=== PATIENT | female | born 1975 | race Hispanic/Latino ===

== ENCOUNTER 2023-09-26 04:51 | Observation (INO) | payer BC ==
[2023-09-26] MEDS ORDERED: ONDANSETRON 4 MG/2 ML VIAL ONE ×2 (05:20→13:33)
[2023-09-26] MEDS ORDERED: FAMOTIDINE 20 MG/2 ML VIAL IV ONE (05:21)
[2023-09-26] MEDS ORDERED: NA CHLORIDE 0.9% 1,000 ML ONE (05:21)
[2023-09-26] MEDS ORDERED: MORPHINE 4 MG/ML SYR ONE (05:21)
[2023-09-26] MEDS ORDERED: MORPHINE 2 MG/ML SYR ONE (05:21)
[2023-09-26 05:48] LABS: Absolute Monocytes 0.6 K/uL (0.1-1.3); Absolute Neutrophil 5.7 K/uL (1.8-8.0); Basophils % 0.4 % (0-1.3); Eosinophils % 0.3 % (0-4.4); Hematocrit 32.3 % (36.0-45.0); Hemoglobin 10.8 g/dL (12.0-15.0); Lymphocytes % 13.8 % (15.3-44.8); MCH 28.3 pg (27.0-35.0); MCHC 33.4 g/dL (32.0-36.0); MCV 84.9 fL (80-100); MPV 8.6 fL (7.6-11.3); Monocytes % 8.6 % (3.3-12.3); Neutrophils % 76.9 % (41.7-73.7); Nucleated Red Blood Cells % 0.1 % (0-0); Platelets 252 thou/uL (152-406); RBC Red Blood Cell Count 3.81 M/uL (3.86-4.86); Red Cell Distribution Width 17.9 % (12.1-15.2)
[2023-09-26 06:04] LABS: Albumin 3.5 g/dL (3.4-5.0); Albumin/Globulin Ratio 0.9 (1.1-1.8); Anion Gap 9.5 mEq/L (5.0-15.0); Bilirubin Total 2.4 mg/dL (0.2-1.0); C-Reactive Protein 5.79 mg/L (<3.00); Potassium 3.5 mEq/L (3.5-5.1); Protein, Total 7.5 g/dL (6.4-8.2)
[2023-09-26 06:06] LABS: Protime INR 0.98
[2023-09-26] MEDS ORDERED: METOCLOPRAMIDE 10 MG/2mL INJ ONE (06:38)
[2023-09-26] MEDS ORDERED: NA CHLORIDE 0.9% 50 ML ONE (06:38)
[2023-09-26] MEDS ORDERED: PROMETHAZINE INJ 25 MG/ML AMP ONE (06:38)
[2023-09-26 07:00] LABS: Specific Gravity 1.026 (1.005-1.030); Urine Clarity Extremely Turbid (Clear); Urine Color Yellow (Yellow); Urine Glucose TRACE (Negative)
[2023-09-26 07:01] LABS: Sqamous Epithelial <5 /HPF (None Seen); Urine Bacteria None Seen /HPF (<20); Urine Bilirubin 1+ (Negative); Urine Blood 2+ (Negative); Urine Culture Reflex Order NOT NEEDED; Urine Ketones 2+ (Negative); Urine Microscopic Reflex YN ORDER UMIC; Urine Mucus 4+ /HPF (None Seen); Urine Nitrite NEGATIVE (Negative); Urine Protein 1+ (Negative); Urine RBC <5 /HPF (None Seen); Urine Urobilinogen 1+ (Normal); Urine WBC <5 /HPF (<5); Urine pH 5.5 (5.0-7.0)
--- NOTE | 2023-09-26 07:33 | RAD REPORT ---
EXAM DESCRIPTION: US - Abdomen Exam Limited - 09/26/2023 6:21 am CLINICAL HISTORY: RUQ pain ;Abd pain COMPARISON: No comparisons FINDINGS: The gallbladder demonstrates extensive cholelithiasis. No pericholecystic fluid or gallbla dder wall thickening. The common bile duct is mildly prominent measuring 7 mm. The liver demonstrates no findings of intrahepatic biliary dilatation. IMPRESSION: Extensive cholelithiasis. Mildly prominent common duct measuring 7 mm.
--- NOTE | 2023-09-26 07:36 | RAD REPORT ---
EXAM DESCRIPTION: CTAbdomen Pelvis W Contrast - 09/26/2023 7:11 am CLINICAL HISTORY: Abdominal pain. ABD PAIN COMPARISON: No comparisons TECHNIQUE: Biphasic CT imaging of the abdomen and pelvis was performed with 100 ml non-ionic IV cont rast. All CT scans are performed using dose optimization technique as appropriate and may include automated exposure control or mA/KV adjustment according to patient size. FINDINGS: The lung bases are clear. The liver demonstrates mild intrahepatic biliary tree dilatation. Extensive cholelithiasis is present in the gallbladder. The spleen, pancreas, adrenal glands and kidneys show no worrisome process. Comm on bile duct appears dilated up to 8 mm with internal possible soft tissue material distally. No bowel obstruction, free air, free fluid or abscess. The appendix is normal. No evidence of signi ficant lymphadenopathy. There is a large mass in the pelvis measuring up to 10 cm which appears to di splace the uterus suggesting a large uterine fibroid. No suspicious bony findings. IMPRESSION: 10 cm mass in the pelvis anteriorly probably represents a large uterine fibroid. Extensive cholelithiasis. Dilated common duct with mild soft tissue density distally may indicate cho ledocholithiasis. MRCP/ ERCP may be of value for followup assessment.
[2023-09-26] MEDS ORDERED: NA CHLORIDE 0.9% 100 ML ONE (07:45)
[2023-09-26] MEDS ORDERED: PIPERACIL/TAZO 4.5 GM VIAL IV ONE (07:45)
--- NOTE | 2023-09-26 07:48 | ER ---
Nurse's Notes [facility] Name: Stephanie Noguera Age: 48 yrs Sex: Female : 1975 Arrival Date: 09/26/2023 Time: 04:51 Bed 7 Private MD: Diagnosis: Cholecystitis, unspecified;Dialated common bile duct;Abdominal pain, unspecified Presentation: 09/25 05:11 Chief complaint: Patient states: right upper quadrant pain radiating to back. Pain is tm6 sharp, 10/10. Pain began Friday and has gotten worse. Had one episode of nausea and vomiting. Coronavirus screen: Vaccine status: Patient reports receiving the 2nd dose of the covid vaccine. Ebola Screen: Patient negative for fever greater than or equal to 101.5 degrees Fahrenheit, and additional compatible Ebola Virus Disease symptoms Patient denies exposure to infectious person. Patient denies travel to an Ebola-affected area in the 21 days before illness onset. No symptoms or risks identified at this time. Initial Sepsis Screen: Does the patient meet any 2 criteria? No. Patient's initial sepsis screen is negative. Does the patient have a suspected source of infection? No. Patient's initial sepsis screen is negative. Risk Assessment: Do you want to hurt yourself or someone else? Patient reports no desire to harm self or others. Onset of symptoms was September 23, 2023. 05:11 Method Of Arrival: Ambulatory tm6 05:11 Acuity: SHA 3 tm6 Triage Assessment: 05:13 General: Appears distressed, uncomfortable, Behavior is calm, cooperative. Pain: tm6 Complains of pain in right upper quadrant Pain radiates to back Pain currently is 100 out of 10 on a pain scale. Quality of pain is described as sharp, Pain began 2-3 days ago. EENT: No signs and/or symptoms were reported regarding the EENT system. Neuro: Level of Consciousness is awake, alert, obeys commands, Oriented to person, place, time, situation. Cardiovascular: Patient's skin is warm and dry. Respiratory: No deficits noted. Airway is patent Respiratory effort is even, unlabored, Respiratory pattern is regular, symmetrical. GI: Abdomen is flat, non-distended, Abd is soft Abdomen is tender to palpation in right upper quadrant Reports upper abdominal pain. : No signs and/or symptoms were reported regarding the genitourinary system. Derm: No signs and/or symptoms reported regarding the dermatologic system. Musculoskeletal: No signs and/or symptoms reported regarding the musculoskeletal system. Historical: - Allergies: 05:13 Tylenol; tm6 05:13 Ibuprofen; tm6 - PMHx: 05:13 None; tm6 - PSHx: 05:13 None; tm6 - Immunization history:: Client reports receiving the 2nd dose of the Covid vaccine. - Infectious Disease History:: Denies. - Social history:: Smoking status: Patient denies any tobacco usage or history of. Patient/guardian denies using alcohol, street drugs. - Family history:: not pertinent. Screenin:15 [facility] ED Fall Risk Assessment (Adult) History of falling in the last 3 months, tm6 including since admission No falls in past 3 months (0 pts) Confusion or Disorientation No (0 pts) Intoxicated or Sedated No (0 pts) Impaired Gait No (0 pts) Mobility Assist Device Used No (0 pt) Altered Elimination No (0 pt) Score/Fall Risk Level 0 - 2 = Low Risk Oriented to surroundings, Maintained a safe environment, Educated pt \T\ family on fall prevention, incl call for assistance when getting out of bed. Abuse screen: Denies threats or abuse. Denies injuries from another. Nutritional screening: No deficits noted. Tuberculosis screening: No symptoms or risk factors identified. Assessment: 05:15 Reassessment: see triage assessment. GI: Bowel sounds present X 4 quads. tm6 06:50 Reassessment: pain has decreased, but nausea increased. tm6 07:12 Reassessment: Patient is alert, oriented x 3, equal unlabored respirations, skin aa5 warm/dry/pink. Pt back from CT scan, now resting with eyes closed. . General: Appears comfortable. Pain: Pain currently is 0 out of 10 on a pain scale. 08:52 Reassessment: Patient is alert, oriented x 3, equal unlabored respirations, skin aa5 warm/dry/pink. Patient denies pain at this time. Patient states feeling better. Patient states symptoms have improved. Pt back from MRI. Vital Signs: 05:11 BP 135 / 78; Pulse 70; Resp 19; Temp 98(O); Pulse Ox 100% on R/A; Weight 65.77 kg; tm6 Height 5 ft. 0 in. ; Pain 10/10; 06:50 BP 112 / 76; Pulse 74; Pulse Ox 98% on R/A; Pain 0/10; tm6 09:00 BP 140 / 76; Pulse 88; Resp 14 S; Temp 97.6(TE); Pulse Ox 100% on R/A; Pain 0/10; aa5 05:11 Body Mass Index 28.32 (65.77 kg, 152.4 cm) tm6 05:11 Pain Scale: Adult tm6 06:50 Pain Scale: Adult tm6 09:00 Pain Scale: Adult aa5 [place] Coma Score: 06:26 Eye Response: spontaneous(4). Motor Response: obeys commands(6). Verbal Response: sp4 oriented(5). Total: 15. ED Course: 04:54 Patient arrived in ED. jj6 05:11 Sal Alejandra, RN is Primary Nurse. tm6 05:11 Scottie Bailey MD is Attending Physician. sp4 05:13 Triage completed. tm6 05:13 Arm band placed on right wrist. tm6 05:15 Patient has correct armband on for positive identification. Placed in gown. Bed in low tm6 position. Call light in reach. Side rails up X 1. Provided Education on: use of call coffman. Client placed on continuous cardiac and pulse oximetry monitoring. NIBP monitoring applied. Pulse ox on. NIBP on. Door closed. Noise minimized. 05:36 Inserted saline lock: 20 gauge in right antecubital area, using aseptic technique. tm6 Blood collected. Flushed with 10 mL NS. 05:37 Lipase Sent. tm6 05:37 CMP Sent. tm6 05:37 CBC with Diff Sent. tm6 05:37 PT-INR Sent. tm6 06:23 US Abdomen Limited In Process Unspecified. EDMS 06:49 Urinalysis w/ reflexes Sent. tm6 06:49 Test, Urine Sent. tm6 06:59 Attending Physician role handed off by Scottie Bailey MD ms3 06:59 Gasper Licona DO is Attending Physician. ms3 07:12 CT Abd/Pelvis - IV Contrast Only In Process Unspecified. EDMS 07:46 Anthony Mckeon MD is Hospitalizing Provider. ms3 08:30 Cholangiogram In Process Unspecified. EDMS 09:41 0922 CM met with and her Nelson at the bedside in the ED exam ane room. Patient identified by name and . Demographic sheet confirmed. Patient states her and her live in a one story home and prior to admission, she performs ADLs independently and without physical limitations. No MPOA in place at this time. Mrs. Noguera does not have HH, home oxygen, DME, or other medical services at this time. Her preferred discharge plan is to return home upon discharge. Her Nelson states he will transport home when discharged. CM team will continue to follow and coordinate care. Administered Medications: 05:37 Drug: NS 0.9% IV 1000 ml IV at 1 bolus Per protocol; 1000 mL bolus Route: IV; Rate: 1 tm6 bolus; Site: right antecubital; 06:49 Follow up: Response: No adverse reaction; IV Status: Completed infusion; IV Intake: tm6 1000ml 05:37 Drug: Famotidine IVP 20 mg IVP once; dilute with 10 mL 0.9% NaCl; give over 2 minutes tm6 Route: IVP; Site: right antecubital; 06:49 Follow up: Response: No adverse reaction tm6 05:37 Drug: Ondansetron IVP 4 mg IVP once; over 2 minutes Route: IVP; Site: right antecubital;tm6 06:49 Follow up: Response: No adverse reaction; No change in condition tm6 05:37 Drug: morphine IVP or IV 6 mg IVP once over 4 mins Route: IVP; Infused Over: 4 mins; tm6 Site: right antecubital; 06:49 Follow up: Response: Pain is decreased; Nausea is increased tm6 06:49 Drug: metoCLOPramide IVP 10 mg IVP once; over 1 to 2 minutes Route: IVP; Site: right tm6 antecubital; 07:00 Follow up: Response: No adverse reaction aa5 06:49 Drug: Promethazine IM 25 mg IM once Route: IM; Site: right deltoid; tm6 07:00 Follow up: Response: No adverse reaction aa5 07:53 Drug: Piperacillin-Tazobactam IVPB 4.5 grams IVPB once over 60 mins; (mix in 100 mL NS) aa5 Route: IVPB; Infused Over: 60 mins; Site: right antecubital; 07:58 Follow up: IV Pause: 09/26/2023 07:58; IV Pause Reason: Patient to MRI aa5 08:53 Follow up: IV Resume: 09/26/2023 08:53; IV Resume Reason: Patient returned from MRI aa5 Medication: 05:15 VIS not applicable for this client. tm6 Intake: 06:49 IV: 1000ml; Total: 1000ml. tm6 Outcome: 07:47 Decision to Hospitalize by Provider. ms3 09:38 Patient left the ED. jr12 Signatures: Dispatcher [employer] EDMS Yancy Painting RN RN aa5 Gasper Licona DO DO ms3 Neida Wood jj6 Scottie Bailey MD MD 4 Cici Madison jr12 Sal Alejandra RN RN tm6 Linda Pinto RN RN ane Corrections: (The following items were deleted from the chart) 05:14 05:13 Allergies: No Known Allergies; tm6 tm6 05:42 05:37 C-REACTIVE PROTEIN+C.LAB.BRZ drawn and sent. tm6 EDMS
--- NOTE | 2023-09-26 07:48 | EDPHYS ---
Physician Documentation [facility] Name: Stephanie Noguera Age: 48 yrs Sex: Female : 1975 Arrival Date: 09/26/2023 Time: 04:51 Bed 7 Private MD: ED Physician Gasper Licona HPI: 09/25 05:11 This 48 yrs old Female presents to ER via Unassigned with complaints of sp4 Abdominal Pain, Nausea/Vomiting. 06:26 88-year-old female presents with acute onset right upper quadrant abdominal pain sp4 starting about 4 days ago. Worsening this morning. Associated with vomiting. Historical: - Allergies: 05:13 Tylenol; tm6 05:13 Ibuprofen; tm6 - PMHx: 05:13 None; tm6 - PSHx: 05:13 None; tm6 - Immunization history:: Client reports receiving the 2nd dose of the Covid vaccine. - Infectious Disease History:: Denies. - Social history:: Smoking status: Patient denies any tobacco usage or history of. Patient/guardian denies using alcohol, street drugs. - Family history:: not pertinent. ROS: 06:26 Constitutional: Negative for fever, chills, and weight loss, positive right upper sp4 quadrant pain positive vomiting 06:26 All other systems are negative, Exam: 06:26 Constitutional: This is a well developed, well nourished patient who is awake, alert, sp4 and in no acute distress. Head/Face: Normocephalic, atraumatic. Eyes: Pupils equal round and reactive to light, extra-ocular motions intact. Lids and lashes normal. Conjunctiva and sclera are not injected. Cornea within normal limits. Periorbital areas with no swelling, redness, or edema. ENT: Nares patent. No nasal discharge, no septal abnormalities noted. Tympanic membranes are normal and external auditory canals are clear. Oropharynx with no redness, swelling, or masses, exudates, or evidence of obstruction, uvula midline. Mucous membranes moist. Neck: Trachea midline, no thyromegaly or masses palpated, and no cervical lymphadenopathy. Supple, full range of motion without nuchal rigidity, or vertebral point tenderness. Chest/axilla: Normal chest wall appearance and motion. Nontender with no deformity. No lesions are appreciated. Cardiovascular: Regular rate and rhythm with a normal S1 and S2. No gallops, murmurs, or rubs. Normal PMI, no JVD. No pulse deficits. Respiratory: Lungs have equal breath sounds bilaterally, clear to auscultation and percussion. No rales, rhonchi or wheezes noted. No increased work of breathing, no retractions or nasal flaring. Abdomen/GI: Soft, with normal bowel sounds. No distension or tympany. No guarding or rebound. No evidence of tenderness throughout. Back: No spinal tenderness. No costovertebral tenderness. Skin: Warm, dry with normal turgor. Normal color with no rashes, no lesions, and no evidence of cellulitis. MS/ Extremity: Pulses equal, no cyanosis. Neurovascular intact. Full, normal range of motion. Neuro: Awake and alert, GCS 15, oriented to person, place, time, and situation. Cranial nerves II-XII grossly intact. Motor strength 5/5 in all extremities. Sensory grossly intact. Psych: Awake, alert, with orientation to person, place and time. Behavior, mood, and affect are within normal limits Vital Signs: 05:11 BP 135 / 78; Pulse 70; Resp 19; Temp 98(O); Pulse Ox 100% on R/A; Weight 65.77 kg; tm6 Height 5 ft. 0 in. ; Pain 10/10; 06:50 BP 112 / 76; Pulse 74; Pulse Ox 98% on R/A; Pain 0/10; tm6 09:00 BP 140 / 76; Pulse 88; Resp 14 S; Temp 97.6(TE); Pulse Ox 100% on R/A; Pain 0/10; aa5 05:11 Body Mass Index 28.32 (65.77 kg, 152.4 cm) tm6 05:11 Pain Scale: Adult tm6 06:50 Pain Scale: Adult tm6 09:00 Pain Scale: Adult aa5 [place] Coma Score: 06:26 Eye Response: spontaneous(4). Motor Response: obeys commands(6). Verbal Response: sp4 oriented(5). Total: 15. MDM: 05:17 Patient medically screened. sp4 06:27 Differential diagnosis: Nonspecific abd pain, gastritis, cholecystitis, pancreatitis, sp4 diverticulitis, viral gastroenteritis, gastroenteritis. Data reviewed: vital signs, lab test result(s), radiologic studies, CT scan, ultrasound. Consideration of Admission/Observation Escalation of care including admission/observation considered. Transition of care: After a detail discussion of the patient's case, care is transferred to Gasper Licona DO. 06:59 Transition of care: Care assumed from Scottie Bailey MD. ms3 07:58 Management of patient was discussed with the following: Hospitalist: Dr Mckeon. ms3 Medical Staffing Coordinator: Dr Green. I considered the following discharge prescriptions or medication management in the emergency department Medications were administered in the Emergency Department. See MAR. Independent interpretation of the following test(s) in the Emergency Department CT Scan: My interpretation is CT abdomen and pelvis images reviewed revealed enlarged uterus and cholelithiasis. Counseling: I had a detailed discussion with the patient and/or guardian regarding the historical points, exam findings, and any diagnostic results supporting the discharge/admit diagnosis, lab results, radiology results, the need for further work-up and treatment in the hospital. ED course: Discussed ultrasound and CT findings with Dr. Green and patient to be admitted to the hospitalist team. He would like MRCP ordered. Patient to remain NPO. Zosyn given.. 09/25 05:11 Order name: CBC with Diff; Complete Time: 06:39 sp4 09/25 05:11 Order name: CMP; Complete Time: 06:39 sp4 09/25 05:11 Order name: Lipase; Complete Time: 06:39 sp4 09/25 05:11 Order name: Test, Urine; Complete Time: 07:35 sp4 09/25 05:11 Order name: Urinalysis w/ reflexes; Complete Time: 07:35 sp4 09/25 05:17 Order name: PT-INR; Complete Time: 06:39 sp4 09/25 05:43 Order name: C-Reactive Protein; Complete Time: 06:39 EDMS 09/25 05:16 Order name: CT Abd/Pelvis - IV Contrast Only; Complete Time: 07:38 sp4 09/25 05:17 Order name: US Abdomen Limited; Complete Time: 07:35 sp4 09/25 07:52 Order name: Cholangiogram EDMS 09/25 05:12 Order name: IV Saline Lock; Complete Time: 05:37 sp4 09/25 05:12 Order name: Labs collected and sent; Complete Time: 05:37 sp4 09/25 07:51 Order name: NPO; Complete Time: 07:52 la1 Administered Medications: 05:37 Drug: NS 0.9% IV 1000 ml IV at 1 bolus Per protocol; 1000 mL bolus Route: IV; Rate: 1 tm6 bolus; Site: right antecubital; 06:49 Follow up: Response: No adverse reaction; IV Status: Completed infusion; IV Intake: tm6 1000ml 05:37 Drug: Famotidine IVP 20 mg IVP once; dilute with 10 mL 0.9% NaCl; give over 2 minutes tm6 Route: IVP; Site: right antecubital; 06:49 Follow up: Response: No adverse reaction tm6 05:37 Drug: Ondansetron IVP 4 mg IVP once; over 2 minutes Route: IVP; Site: right antecubital;tm6 06:49 Follow up: Response: No adverse reaction; No change in condition tm6 05:37 Drug: morphine IVP or IV 6 mg IVP once over 4 mins Route: IVP; Infused Over: 4 mins; tm6 Site: right antecubital; 06:49 Follow up: Response: Pain is decreased; Nausea is increased tm6 06:49 Drug: metoCLOPramide IVP 10 mg IVP once; over 1 to 2 minutes Route: IVP; Site: right tm6 antecubital; 07:00 Follow up: Response: No adverse reaction aa5 06:49 Drug: Promethazine IM 25 mg IM once Route: IM; Site: right deltoid; tm6 07:00 Follow up: Response: No adverse reaction aa5 07:53 Drug: Piperacillin-Tazobactam IVPB 4.5 grams IVPB once over 60 mins; (mix in 100 mL NS) aa5 Route: IVPB; Infused Over: 60 mins; Site: right antecubital; 07:58 Follow up: IV Pause: 09/26/2023 07:58; IV Pause Reason: Patient to MRI aa5 08:53 Follow up: IV Resume: 09/26/2023 08:53; IV Resume Reason: Patient returned from MRI aa5 Disposition Summary: 09/26/23 07:47 Hospitalization Ordered Notes: Hospitalization Status: Inpatient Admission ms3 Provider: Anthony Mckeon ms3 Location: Telemetry/[facility]Sur (Inpatient) ms3 Condition: Stable ms3 Problem: new ms3 Symptoms: are unchanged ms3 Bed/Room Type: Standard ms3 Room Assignment: 202(09/26/23 08:54) jr12 Diagnosis - Cholecystitis, unspecified ms3 - Dialated common bile duct ms3 - Abdominal pain, unspecified ms3 Forms: - Medication Reconciliation Form ms3 - SBAR form ms3 - Leadership Thank You Letter ms3 Signatures: Dispatcher [employer] EDPR Yancy Painting, RN RN aa5 Jos Walls, VICE PRESIDENT OF TALENT MANAGEMENT-C VICE PRESIDENT OF TALENT MANAGEMENT-Cla1 Gasper Licona DO DO ms3 Scottie Bailey MD MD sp4 Cici Madison jr12 Sal Alejandra RN RN tm6 Corrections: (The following items were deleted from the chart) 05:14 05:13 Allergies: No Known Allergies; tm6 tm6 05:42 05:17 C-REACTIVE PROTEIN+C.LAB.BRZ ordered. EDPR EDMS 08:54 07:47 ms3 jr12
--- NOTE | 2023-09-26 08:56 | RAD REPORT ---
EXAM DESCRIPTION: MRI - Cholangiogram - 09/26/2023 8:28 am CLINICAL HISTORY: Cholelithiasis, elevated lft, dilated cbd COMPARISON: No comparisons FINDINGS: Three-dimensional MRCP was performed using maximum intensity projection reconstruction on the same work station. Intrahepatic biliary tree is mildly prominent. Common bile duct is mildly dilated with 6 mm rounded s tructure distal common bile duct likely distal common bile duct stone. The pancreatic duct is not pat hologically dilated. Multiple stones are present filling the gallbladder. Limited T2 sequences through the abdomen demonstrates no bulky adenopathy, significant free fluid or abscess. IMPRESSION: Cholelithiasis. Choledocholithiasis is also present with 6 mm stones suspected distal common duct. Intrahepatic bilia ry tree mildly prominent.
[2023-09-26] MEDS ORDERED: ONDANSETRON 4 MG/2 ML VIAL IV PRN (09:45)
[2023-09-26] MEDS: NA CHLORIDE 0.9% 1,000 ML IV SCH (09:55)
[2023-09-26 10:02] VITALS: BMI 28.3
--- NOTE | 2023-09-26 10:19 | P.HP ---
Certification for Inpatient Patient admitted to: Observation With expected LOS: <2 Midnights Patient will require the following post-hospital care: None Practitioner: I am a practitioner with admitting privileges, knowledge of patient current condition, hospital course, and medical plan of care. Services: Services provided to patient in accordance with Admission requirements found in Title 42 Section 412.3 of the Code of Federal Regulations Patient History Date of Service: 09/26/23 Reason for admission: Choledocholithiasis History of Present Illness: Otherwise healthy 48-year-old female presents emergency department for 3 days of abdominal pain, right upper quadrant. She was evaluated in the emergency department her labs were significant for an AST of 104 ALT of 211 T. bili 2.[address] abdomen pelvis with IV contrast was performed which showed 10 cm mass in the pelvis anteriorly probably represents a large uterine fibroid, extensive cholelithiasis. Dilated common bile duct with mild soft tissue density distally may indicate choledocholithiasis. Subsequent MRCP was performed which confirmed choledocholithiasis with a 6 mm stone in the distal bile duct, intrahepatic biliary tree mildly prominent. ED physician discussed case with general surgery who plans for operative management. 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 moist/pink Neck: Supple, 2+ carotid pulse no bruit Respiratory: Clear to auscultation bilaterally, Normal air movement Cardiovascular: Regular rate/rhythm, Normal S1 S2 Gastrointestinal: Normal bowel sounds, Tenderness (Right upper quadrant tendernessmild) Musculoskeletal: No tenderness Integumentary: No rashes Neurological: Normal speech, Normal strength at 5/5 x4 extr, Normal tone - Studies Laboratory Data (last 24 hrs) 09/26/23 09/26/23 09/26/23 05:36 05:36 05:36 WBC 7.50 Hgb 10.8 L Hct 32.3 L Plt Count 252 PT 11.0 INR 0.98 Sodium 135 L Potassium 3.5 BUN 7 Creatinine 0.61 Glucose 136 H Total Bilirubin 2.4 H AST 104 H ALT 211 H Alkaline Phosphatase 233 H Lipase 24 Assessment and Plan - Plan Assessment: Cholelithiasis, choledocholithiasis Elevated aminotransferase levels/T. bili Plan: Cholelithiasis, choledocholithiasis Elevated aminotransferase levels/T. bili MRCP positive for suspected choledocholithiasis General Surgery plans for operative management N.p.o., IVF, as needed pain medications and antiemetics Repeat CBC/CMP in the morning DVT PPX: SCDs Code status: Full Discharge Plan: Home Plan to discharge in: 24 Hours - Advance Directives Does patient have a Living Will: No Does patient have a Durable POA for Healthcare: No - Code Status/Comfort Care Code Status Assessed: Yes (Full code) Critical Care: No Time Spent Managing Pts Care (In Minutes): 55
[2023-09-26] MEDS ORDERED: KETOROLAC 30 MG/ML INJ ONE (13:33)
[2023-09-26] MEDS ORDERED: MIDAZOLAM HCL 2 MG/2 ML INJ ONE (13:33)
[2023-09-26] MEDS ORDERED: LIDOCAINE 1% MPF 5 ML VIAL ONE (13:33)
[2023-09-26] MEDS ORDERED: ROCURONIUM 50 MG/5 ML VIAL IV ONE (13:33)
[2023-09-26] MEDS ORDERED: FENTANYL CITR 100 MCG/2 ML ONE ×2 (13:33→18:01)
[2023-09-26] MEDS ORDERED: propofoL 200 MG/20 ML VIAL IV ONE (13:33)
[2023-09-26] MEDS ORDERED: dexAMETHasone 10 MG/ML VIAL ONE (14:15)
[2023-09-26] MEDS: PIPER TAZO 3.375 GM in NA CHLORIDE 0.9% 100 ML IV ONE (14:50)
[2023-09-26] MEDS: LIDOCAINE HCL/EPINEPHRINE 20 ML MDV ONE (14:51)
[2023-09-26] MEDS: Ringers Lactate 1,000 ML IV ONE (16:19)
[2023-09-26] MEDS ORDERED: NEOSTIGMINE 1 MG/ML -10 ML VIAL ONE (18:21)
[2023-09-26] MEDS ORDERED: GLYCOPYRROLATE 0.2 MG/ML SYR ONE ×3 (18:22)
[2023-09-26] MEDS ORDERED: Ringers Lactate 1,000 ML IV ONE (18:36)
--- NOTE | 2023-09-26 18:51 | P.OP ---
Preoperative diagnosis: Choledocholithiasis with Cholecystitis Postoperative diagnosis: Choledocholithiasis with Cholecystitis Primary procedure: Laparoscopic Cholecystomy ICG Secondary procedure: Intraoperative cholangiography with contrast Other procedure(s): Laparoscopic Common Bile Duct Exploration Anesthesia: GETA + Local Estimated blood loss: <10cc Specimen: Gallbladder, gallstones Findings: multiple stones in common, cystic duct Complications: None Drain(s): JACKY drain (10mm Flat JACKY ) Transferred to: Recovery Room Condition: Good
[2023-09-26] MEDS: ONDANSETRON 4 MG/2 ML VIAL ONE (19:10)
[2023-09-26] MEDS: HYDROMORPHONE HCL 1 MG/ML INJ ONE (19:12)
[2023-09-26 19:24] VITALS: O2SAT 92
[2023-09-26] MEDS: MORPHINE 2 MG/ML SYR IV PRN (21:06)
--- NOTE | 2023-09-26 22:15 | RAD REPORT ---
EXAM DESCRIPTION: RAD - Cholangiogram Oper-Xray Or - 09/26/2023 10:06 pm CLINICAL HISTORY: lap tatiana COMPARISON: None available. FINDINGS: Two Images were sent to PACS, documenting fluoroscopy use during an intraoperative cholang iogram. No radiologist was available for the procedure, nor will any image interpretation he provided . Please refer to the procedural report for additional details. Fluoroscopy time: 0.5 Minutes. IMPRESSION: Documentation of fluoroscopy utilization as above.
--- NOTE | 2023-09-27 04:21 | OP ---
Date of Procedure: 09/26/2023 Surgeon: Cristian Green MD, Preoperative Diagnoses: Choledocholithiasis, cholecystitis. Postoperative Diagnoses: Choledocholithiasis, cholecystitis. Procedures Performed: 1.Laparoscopic cholecystectomy with indocyanine green cholangiography. 2.Intraoperative contrast cholangiography. 3.Laparoscopic common bile duct exploration with multiple stone extractions. Anesthesia: General endotracheal plus local with 1% lidocaine with epinephrine. Estimated Blood Loss: Less than 10 cc. Specimens: Gallbladder and multiple gallstones. Findings: Multiple gallstones in the common duct as well as cystic duct, not all of which were prese nt on preoperative imaging. Drains: A 10 mm flat JACKY drain placed in the subhepatic space. The patient was transferred [facility] room in good condition. Brief History Of Present Illness: The patient is a 48-year-old woman who had mild epigastric tendern ess and pain over the course of some extended period of time, who presented to the ER with abdominal pain. Ultimately, workup showed that she had a gallbladder, which was impacted with stones and evide nce of choledocholithiasis with at least a 6 mm stone at the distal common bile duct. As such, she w as deemed appropriate for operative intervention. I discussed the case with the patient and her husb and and explained that the plan would be laparoscopic cholecystectomy, intraoperative cholangiography with indocyanine green cholangiography as well as contrast cholangiography and laparoscopic common b ile duct exploration with stone extraction. I explained the risks, benefits, and alternatives of the above stated plan including, but not limited to bleeding; infection; damage to surrounding tissues; injury to the liver, pancreas, bile ducts; need for further operative procedures; heart attacks; bloo d clots; strokes; and other unforeseen complication in the perioperative period. Most importantly, p ossible need for ongoing and additional procedures after surgery depending on the findings. The shane ent and her displayed understanding of the above stated plan. All questions answered and the patient agreed to proceed as indicated. Procedure In Detail: After above informed consent was obtained, the patient was brought to the opera ting room, prepped and draped in the usual sterile fashion. After adequate anesthesia achieved, I an esthetized the area of the supraumbilical position down through subcutaneous tissues. 5 mm 0 degree optical trocar was introduced in the abdomen without incident or complication. Insufflation was obta ined to 15 mmHg at this time. There was no injury to vital structures upon entry in the abdomen. 3 additional trocars were placed, 1 in the epigastrium, 1 in the right upper quadrant, 1 in the right m id abdomen. All these were 5 mm trocars placed under direct visualization without incident or compli cation. The umbilical trocar then upsized to 12 mm under direct visualization without incident or co mplication. Patient was positioned in head up right-side up position. Ratcheted graspers attempted to grasp the patient's gallbladder. It was completely full of stones and impossible to be grasped at this point. However, stone was noted to be eroding to the fundus of the gallbladder, and as such, I opted to dissect the omental attachments off the anterior surface of the gallbladder as the gallblad sissy was completely encased in omental attachments and close proximity to the duodenum as well as stom ach. These were taken down using combination of blunt dissection as well as electrocautery with mini mal electrocautery to preserve all structures. At this point, after the gallbladder was visualized a ppropriately, I tried to the decompress the gallbladder with decompression needle, which was complete ly unsuccessful as no bile was evident coming through this area. Indocyanine green cholangiography c onfirmed that fact that the gallbladder was filled with no bile. At this point, there was minimal op acification of the cystic duct proximally, but not distally towards the gallbladder. At this point, I opted to open the fundus of the gallbladder to allow for grasping. I grasped the gallbladder throu gh this portion of the fundus of the gallbladder, placed it towards the patient's right shoulder and dissected down as described above, continuing down taking a somewhat dome down approach to allow for mobilization of the gallbladder with significant adhesions precluding its normal safe positioning. A t this point, I dissected circumferentially, dissected out 2 structures, identified both the cystic d uct and cystic artery. The cystic duct was quite dilated and the stone was evident in this area very close to the proximity at the confluence of the cystic duct gallbladder junction. I ultimately atte mpted to milk this stone back in to the gallbladder, which seemed successful at this point. However, there appeared to be another stone distally from this previously placed stone at this time. I then encircled these structures and noted the significant dilation of the cystic duct at this time with si gnificant scar tissue evident. I then made an incision overlying this cystic duct and entered a chol angiogram catheter, attempted to shoot a cholangiogram, which did opacify distally, but not proximall y as the hepatic ducts were not visualized; however, contrast did show evidence of distal common bile duct stone as well as a stone, which I had to pass the catheter around in the cystic duct to allow f or visualization. At this point, I suspect that the cholangiogram was incomplete due to the balloon being beyond the stone, which sat near the confluence of the cystic duct common duct confluence and i nflating the balloon past the stone causing the obstruction, allowing for non-opacification of the in trahepatic ducts. The distal common bile duct was visualized, however, at this point showing a stone evident, and as such, I opted to perform a laparoscopic common bile duct exploration with the [place] ss technology at this point. I was able to place the introducer sheath and Spyglass camera into the cystic duct. I ultimately encountered a stone here at the cystic duct once again, which was the seco nd stone. I was able to pass the basket around the stone and retrieved it ultimately, placed it on t he back table, and ultimately advanced back into the catheter at this point. I attempted to pass a w ronald, which was unsuccessful and there seemed to be significant stone burden throughout the common dione e duct, which was more proximal than anticipated near the distal common bile duct, which was indicate d on the preoperative imaging. As such, attempts at using small wires and direct visualization were unsuccessful passing a wire into the duodenum, and as such, I opted to do direct vision and I placed the Spyglass scope/choledochoscope into the cystic duct once again and ultimately passed into the com mon bile duct. I encountered multiple stones through the common bile duct of differing size and elvin acter. I continued to place a basket and snare to pull back at least 4 to 5 of these stones and retr ieve them. They were placed on the back table after being retrieved. I passed the SpSemiLevlass camera o nce again and continued down towards the distal common bile duct. At one point, I attempted to use t he Lithotripter device to break up the stones, some of which were amenable to breaking other ones wer e not and did not respond to breakage of maximum setting, and as such, I opted to discontinue this po rtion of the procedure. I considered placement of balloon sphincteroplasty, however, wire could not be passed these stones as well and as such, I abandoned this portion of the procedure. I then inspec cristian the bile duct, all the inspected portions of the procedure and found that there were no injuries to the point. Since multiple stones remained, I felt that the patient would be better served by reza traore possibly an ERCP or possibly have a hepatobiliary surgeon evaluation as there significant stone bu rden was evident in this case. As such, I opted to discontinue the procedure at this point, leaving stones in the distal common bile duct, which could not be retrieved at this point despite multiple at tempts. At this point, I placed triple titanium clips across the distal cystic duct and single on th e proximal cystic duct at the confluence of the gallbladder and these were cut between artemio. At th is point, I ligated the cystic artery as well between double clips using the LigaSure device. At thi s point, the gallbladder was removed from the hepatic fossa and placed in EndoCatch bag and removed t hrough the umbilical trocar after dilation of the umbilicus as the stone burden was significantly gal lbladder precluding, removal through a normal 12 mm trocar site. After this was completed, reinflati on was obtained. I irrigated the abdomen copiously. There was no bile spillage at the end of the pr ocedure. I placed a 10 flat JACKY drain into the subhepatic space next to the bile duct and ran it out through the right lower quadrant trocar, secured to the skin using a 3-0 nylon suture and then irriga cristian the abdomen several more times and then suctioned out that completely dry. I inspected for hemos tasis, which was good at this point without any additional hemostatic maneuvers and the effluent was clear. I positioned the patient back in neutral position, suctioned out the remaining air fluid and closed the 12 mm trocar site using Mckay-Eric suture passer with 0 Vicryl in an interrupted fash ion with good approximation of tissues. The abdomen was then desufflated under direct visualization without incident or complication. The remaining trocar sites were all irrigated copiously and closed with interrupted isabel and a sterile dressing placed over the top. The patient tolerated the proc edure without incident or complication and transferred to PACU in good condition. All counts were co rrect at the end of the case. The patient will be transferred for any ERCP, which is not available a t this facility and possibly Hepatobiliary Surgery evaluation based on the persistence of multiple stones in her common bile duct, which could not be re trieved at this time. NE/JAZZY Voice ID: [id number] Report ID: [id number]
[2023-09-27 04:26] VITALS: BP 134/74; TEMP 98
--- NOTE | 2023-09-27 06:36 | P.DS ---
Admission Date: 09/26/23 Discharge Date: 09/27/23 Disposition: TRANSFER TO GENERAL HOSPITAL Comment: [facility] Discharge Condition: SERIOUS Reason for Admission: Choledocholithiasis Consultations: General SurgeryDr. Green Procedures: Laparoscopic cholecystectomy with attempted cholangiogram Brief History of Present Illness: Otherwise healthy 48-year-old female presents emergency department for 3 days of abdominal pain, right upper quadrant. She was evaluated in the emergency department her labs were significant for an AST of 104 ALT of 211 T. bili 2.[address] abdomen pelvis with IV contrast was performed which showed 10 cm mass in the pelvis anteriorly probably represents a large uterine fibroid, extensive cholelithiasis. Dilated common bile duct with mild soft tissue density distally may indicate choledocholithiasis. Subsequent MRCP was performed which confirmed choledocholithiasis with a 6 mm stone in the distal bile duct, intrahepatic biliary tree mildly prominent. ED physician discussed case with general surgery who plans for operative management. Hospital Course: Patient was admitted to the hospital for cholelithiasis, choledocholithiasis. She was taken to the OR for planned laparoscopic cholecystectomy with indocyanine green cholangiography. Patient was found to have multiple stones in the CBD despite multiple efforts to remove from general surgery. Cholecystectomy was performed and it was recommended that patient be transferred for ERCP/hepatobiliary surgery evaluation. Patient is excepted to [facility] in [place] for further management. Assessment: Cholelithiasis, choledocholithiasis Elevated aminotransferase levels/T. bili Vital Signs/Physical Exam: Temp Pulse Resp BP Pulse Ox 98 F 77 14 134/74 100 09/27/23 04:00 09/27/23 04:00 09/27/23 04:00 09/27/23 04:00 09/27/23 04:00 Laboratory Data at Discharge: WBC 7.50 thou/uL (4.3-10.9) 09/26/23 05:36 Hgb 10.8 g/dL (12.0-15.0) L 09/26/23 05:36 Hct 32.3 % (36.0-45.0) L 09/26/23 05:36 Plt Count 252 thou/uL (152-406) 09/26/23 05:36 PT 11.0 SECONDS (9.4-12.5) 09/26/23 05:36 INR 0.98 09/26/23 05:36 Sodium 135 mEq/L (136-145) L 09/26/23 05:36 Potassium 3.5 mEq/L (3.5-5.1) 09/26/23 05:36 BUN 7 mg/dL (7-18) 09/26/23 05:36 Creatinine 0.61 mg/dL (0.55-1.02) 09/26/23 05:36 Glucose 136 mg/dL (74-106) H 09/26/23 05:36 Total Bilirubin 2.4 mg/dL (0.2-1.0) H 09/26/23 05:36 AST 104 U/L (15-37) H 09/26/23 05:36 ALT 211 U/L (13-56) H 09/26/23 05:36 Alkaline Phosphatase 233 U/L (45-117) H 09/26/23 05:36 Lipase 24 U/L (13-75) 09/26/23 05:36 Home Medications: NK [No Home Meds] 09/26/23 Diet: npo Followup: Alexx Green MD [ACTIVE - CAN ADMIT] - Susan Weinstein PA [Primary Care Provider] - Time spent managing pt's care (in minutes): 30
--- NOTE | 2023-09-27 09:24 | CON ---
Date of Consultation: 09/26/2023 Brief History Of Present Illness: The patient is a 48-year-old female with a past medical h istory of abdominal pain beginning approximately 3 to 4 days ago, which was acute in nature, primaril y located in the right upper quadrant. She states she has had gastrointestinal problems with indiges tion for many years up in the epigastric region, but never sought medical attention for this. She benavides s had multiple times where she thought simply she was getting sick from a stomach issue for years karolyn or. She was seen in the emergency room and found to have elevation of her LFTs and had imaging, whic h confirmed choledocholithiasis with cholecystitis. As such, she was brought in the hospital for man agement. Past Medical History: Denies. Past Surgical History: She denies. Allergies: NO KNOWN DRUG ALLERGIES. Home Medications: None. Social History: She denies smoking, alcohol, or recreational drug use. 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 A 10-point review of systems other than HPI, she denies. Family History: She has a family history of lung cancer in her father who had a positive tobacco his tory. Physical Examination: Vital Signs: At the time of my examination included 97.9, blood pressure 140/76, pulse 88, respirato ry rate 14. General: She is awake, alert, and oriented. Psychiatric: She is appropriate, conversive. HEENT: She is normocephalic. Sclerae icteric. Mucous membranes moist. Oropharynx is clear. Neck: Supple without JVD. Chest: Normal expansion and excursion. Cardiovascular: Regular rate and rhythm. Pulmonary: Clear to auscultation bilaterally. Abdomen: Soft with epigastric and right upper quadrant tenderness to palpation. Positive Montoya sig n. No focal peritonitis. Minimal guarding in the right upper quadrant. No hernias appreciated. Th e patient's abdomen is minimally obese. Extremities: No clubbing, cyanosis, edema. Skin: Warm and dry. Laboratory Data: Revealed white blood cell count of 7.5, hemoglobin 10.8, hematocrit 32.3, platelet count was 252, neutrophils 76%. PT 11.0, INR 0.98. Sodium 135, potassium 3.5, chloride 103, carbon dioxide 26, BUN 7, creatinine 0.6, glucose is 136, total bilirubin was 2.4, AST 104, ALT 211, alkalin e phosphatase is 233. C-reactive protein was 5.79. Lipase is 24. Her urine showed some turbidity, ketones, blood, bilirubin, urobilinogen, 4+ mucus. test was negative. She had imaging per formed, which included a CT of the abdomen and pelvis, officially read as 10 cm mass in the pelvis an teriorly, probably represents a large uterine fibroid, extensive cholelithiasis, dilated common bile duct with mild soft tissue density distally, which may indicate choledocholithiasis. The liver did d emonstrate mild intrahepatic biliary ductal dilatation. The common bile duct was dilated up to 8 mm. She had an ultrasound, which showed extensive cholelithiasis and a prominent common bile duct measu ring 7 mm as well. There was no pericholecystic fluid or gallbladder wall thickening and there was i ntrahepatic biliary ductal dilatation confirmed on ultrasound. She had an MRCP, which confirmed chol elithiasis, choledocholithiasis with 6 mm stones suspected in the distal common bile duct. Intrahepa tic biliary tree was mildly prominent as well. There were multiple stones filling the gallbladder. Pancreatic duct was not pathologically dilated, however. Assessment And Plan: This is a 48-year-old woman who comes in with signs of cholelithiasis with chol edocholithiasis. 1.IV fluid hydration. 2.Antibiotic coverage. 3.I have explained the risks, benefits, and alternatives of laparoscopic cholecystectomy with indocy anine green cholangiography as well as contrast intraoperative cholangiography, laparoscopic common b ile duct exploration with stone extraction, possible sphincterotomy and indicated procedures. I have explained the risks, benefits, and alternatives of this procedure including, but not limited to blee ding; infection; damage to any internal organs including liver, pancreas, intestines, or any other in ternal organs; blood clots; heart attack; strokes; bile leak; need for further operative procedures; possible injury to the common bile duct possibly leading to the need for multiple reconstructive surg eries and other unforeseen complications in the perioperative period. Additionally, there is a possi bility we are unable to extract stones due to the position, number, or character of the stones. The patient displayed understanding of the above stated plan and agreed to proceed as indicated. NE/JAZZY Voice ID: [id number] Report ID: [id number]
== END 2023-09-27 05:16 | disposition short-term general hospital (02) ==
LOC: ER 04:51 → ERHOLD 08:35 → 2ND 09:04
PROVIDERS: ADMIT Hospitalist; ATTEND Hospitalist
PROC: BF50200 Other Imaging of Bile Ducts using Fluorescing Agent, Indocyanine Green Dye, Intraoperative (ICD-10-PCS; 2023-09-26)
PROC: 0FC98ZZ Extirpation of Matter from Common Bile Duct, Via Natural or Artificial Opening Endoscopic (ICD-10-PCS; 2023-09-26)
PROC: 0FT44ZZ Resection of Gallbladder, Percutaneous Endoscopic Approach (ICD-10-PCS; principal; 2023-09-26 15:15)
DX: K80.40 Calculus of bile duct with cholecystitis, unspecified, without obstruction (principal); R10.11 Right upper quadrant pain; Z80.1 Family history of malignant neoplasm of trachea, bronchus and lung
CPT/HCPCS: 96361; 85025; 81001; 36415; 81025; 85610; 83690; 80053; 86140; 74177; 74300; 74181; 76705; 96375; 96372; 96374; 99284; 47563; 47579; Q9967; J2550; J2704; J2710; J2765; J2001; J2543; J2250; J3010 ×2; J1100; J2270 ×2; J1170; J2405 ×3; J7120 ×2; J7030 ×3; 88304; G0378